=== PATIENT | male | born 1935 | race Caucasian/White ===

== ENCOUNTER → 2018-07-06 | Outpatient (CLI) | payer OTHER, MEDICARE ==
--- NOTE | ~2018-07-06 | 2DMMODE ---
[facility] [address] [place] [address] 2 D/M-MODE ECHOCARDIOGRAM Name: CHELSY BOWEN JR Room #: [facility]#: [id number] Admission: 07/06/18 Attend Phys: Kelechi Penn Discharge: Date of : 39 Date of Service: 07/06/18 1006 Report #: [id number] THIS REPORT FOR: //name// APPROVED REPORT Study performed: 07/06/2018 09:09:14 EXAM: Comprehensive 2D, Doppler, and color-flow Echocardiogram Patient Location: Out-Patient Room #: Echo lab 2 Status: routine BSA: 1.76 HR: 50 bpm BP: 136/84 mmHg Other Information Study Quality: Adequate Indications Atrial Fibrillation 2D Dimensions RVDd: 42.12 mm IVSd: 13.66 (7-11mm) LVOT Diam: 22.03 (18-24mm) LVDd: 50.12 mm PWd: 14.08 (7-11mm) Ascending Ao: 32.28 (22-36mm) LVDs: 32.42 (25-40mm) Aortic Root: 35.32 mm IVC: 26.00 mm Volumes Left Atrial Volume (Systole) Single Plane 4CH: 64.61 mL Single Plane 2CH: 68.58 mL LA ESV Index: 42.00 mL/m2 Aortic Valve AoV Peak Emir.: 1.52 m/s AO Peak Gr.: 9.18 mmHg LVOT Max P.13 mmHg LVOT Max V: 1.02 m/s BAN Vmax: 2.55 cm2 AI Vmax: 4.37 m/s AI Bandera: 1.65 m/s2 AI PHT: 769.97 ms Mitral Valve E/A Ratio: 0.6 [facility] [address] [place] [address] 2 D/M-MODE ECHOCARDIOGRAM Name: CHELSY BOWEN Room #: [facility]#: [id number] Admission: 07/06/18 Attend Phys: Kelechi Penn Discharge: Date of : 39 Date of Service: 07/06/18 1006 Report #: [id number] MV Decel. Time: 254.22 ms MV E Max Emir.: 0.55 m/s MV A Emir.: 0.90 m/s MV PHT: 73.72 ms IVRT: 129.18 ms Pulmonary Valve PV Peak Emir.: 0.98 m/s PV Peak Gr.: 3.87 mmHg Pulmonary Vein P Vein S: 0.46 m/s P Vein A: 0.29 m/s P Vein D: 0.26 m/s P Vein A Dur.: 106.1 msec P Vein S/D Ratio: 1.77 Tricuspid Valve TR Peak Emir.: 2.55 m/s TR Peak Gr.: 25.95 mmHg PA Pressure: 36.00 mmHg Left Ventricle The left ventricle is normal size. There is normal LV segmental wall motion. Mild concentric left ventricular hypertrophy. The left ventricular systolic function is normal. The left ventricular ejection fraction is within the normal range. LVEF is 50-55%. Grade I - abnormal relaxation pattern. Right Ventricle Right ventricle is at the upper limits of normal. The right ventricular systolic function is normal. Atria Left atrium is dilated. Right atrium is dilated. Aortic Valve The aortic valve is normal in structure. Aortic valve is calcified. Mild aortic regurgitation. There is no aortic valvular stenosis. Mitral Valve The mitral valve is normal in structure. Mild mitral regurgitation. No evidence of mitral valve stenosis. Tricuspid Valve The tricuspid valve is normal in structure. There is mild tricuspid regurgitation. Estimated PAP 36 mmHg. There is mild pulmonary hypertension. [address] [address] 2 D/M-MODE ECHOCARDIOGRAM Name: BOWENCHELSY Room #: REG CL [facility]#: [id number] Admission: 07/06/18 [facility]end Phys: [facility]: Date of : 39 Date of Service: 07/06/18 1006 Report #: [id number] Pulmonic Valve The pulmonary valve is normal in structure. Trace to mild pulmonic regurgitation. Great Vessels The aortic root is normal in size. IVC is dilated and collapses >50% with inspiration. Pericardium There is no pericardial effusion. <Conclusion> The left ventricle is normal size. LVEF is 50-55%. Left atrium is dilated. Right atrium is dilated. The aortic valve is normal in structure. Aortic valve is calcified. Mild aortic regurgitation. The mitral valve is normal in structure. Mild mitral regurgitation. The tricuspid valve is normal in structure. There is mild tricuspid regurgitation. Estimated PAP 36 mmHg. There is mild pulmonary hypertension. Trace to mild pulmonic regurgitation. <ELECTRONICALLY SIGNED> By: Domingo Babb MD 07/06/18 1006 1006 05 Domingo Babb MD /INF
== END ==
LOC: CV 08:26
DX: I08.3 Combined rheumatic disorders of mitral, aortic and tricuspid valves (principal); I48.0 Paroxysmal atrial fibrillation; I27.20 Pulmonary hypertension, unspecified; I10 Essential (primary) hypertension